=== PATIENT | male | born 1950 | race Caucasian/White ===

== ENCOUNTER → 2023-08-02 13:21 | Outpatient (BNVA) | payer MEDICARE, SELFPAY | PROVIDERS: PCP Physician Assistant; Referring Provider Physician Assistant; Visit Provider Physician Assistant Surgical | DX: R05.3 Chronic cough (principal); R09.82 Postnasal drip; Z87.891 Personal history of nicotine dependence | CPT/HCPCS: 99205 ==

== ENCOUNTER → 2023-09-18 14:20 | Outpatient (BNVA) | payer MEDICARE, SELFPAY | PROVIDERS: PCP Physician Assistant; Referring Provider Physician Assistant; Visit Provider Physician Assistant Surgical | DX: R05.3 Chronic cough (principal); R09.82 Postnasal drip; Z87.891 Personal history of nicotine dependence; I25.2 Old myocardial infarction | CPT/HCPCS: 99214 ==

== ENCOUNTER → 2023-12-06 13:45 | Outpatient (BNVA) | payer MEDICARE, SELFPAY | PROVIDERS: PCP Physician Assistant; Referring Provider Physician Assistant; Visit Provider Internal Medicine Critical Care Medicine | DX: R05.3 Chronic cough (principal); R05.9 Cough, unspecified | CPT/HCPCS: 36415; 99214 ==

== ENCOUNTER 2023-12-06 19:51 | Outpatient (REF) | payer MEDICARE, SELFPAY ==
[2023-12-06 17:42] LABS: Abs Immature Grans 0.01 10^3/uL (0.0-0.06); Absolute Basophil Count 0.08 10^3/uL (0.0-0.2); Absolute Eosinophil Count 0.19 10^3/uL (0.0-0.7); Absolute Lymphocyte Count 1.39 10^3/uL (1.2-3.4); Absolute Monocyte Count 0.65 10^3/uL (0.1-0.8); Absolute Neutrophil Count 2.51 10^3/uL (1.2-6.7); Basophils % 1.7 %; Eosinophils % 3.9 %; HCT 41.8 % (40.0-50.0); HGB 14.3 g/dL (13.5-17.5); Immature Grans % 0.2 %; Lymphocytes % 28.8 %; MCH 32.4 pg (27.0-33.0); MCHC 34.2 % (32.0-36.0); MCV 95 fL (80-95); MPV 9.5 fL (8.0-11.0); Monocytes % 13.5 %; Neutrophils % 51.9 %; Platelet Count 308 10^3/uL (130-400); RBC 4.42 10^6/uL (4.36-5.78); RDW 13.1 % (11.8-14.1); RDW-SD 45.3 fL; WBC 4.83 10^3/uL (4.4-10.8)
[2023-12-07 19:25] LABS: IgE 231 IU/mL (<158)
== END 2023-12-06 19:52 | disposition home or self-care (01) ==
LOC: LBN 19:51
PROVIDERS: PCP Physician Assistant; Visit Provider Internal Medicine Critical Care Medicine
DX: R05.3 Chronic cough (principal)
CPT/HCPCS: 82785; 85025

== ENCOUNTER 2023-12-13 03:50 | Outpatient (CLI) | payer MEDICARE, SELFPAY ==
[2023-12-13] MEDS: Methacholine 100 MG VIAL IH (16:44)
[2023-12-13] MEDS: Albuterol HFA 18 GM 200 PUFF INH IH (16:45)
[2023-12-13] MEDS: Inhaler, Assist Device 1 EACH MC (16:45)
--- NOTE | 2023-12-19 08:42 | W.PFT ---
Date of service: 12/13/23 Time of Service: 14:55 Pulmonary Function Test Result Requesting Provider Jina Wills MD Indications: Chronic cough, chest tightness, seasonal allergies. Former 30+ pack year smoker, quit 30 years ago. Medication: Albuterol not used before this test. Interpretation Spirometry: This is a methacholine challenge test, done according to [employer] standards. It includes prebronchodilator baseline, challenge with successively increasing doses of inhaled methacholine, and postbronchodilator reassessment. 1. Baseline spirometry is normal. 2. Methacholine challenge testing was negative, up to 16 mg/ml Methacholine. 3. Postbronchodilator assessment showed return of pulmonary function test to normal. Impression Negative methacholine challenge test. These results do not support a diagnosis of asthma. Clinical Correlation is recommended.
== END 2023-12-19 23:59 | disposition home or self-care (01) ==
LOC: RT 03:50
PROVIDERS: PCP Physician Assistant; Visit Provider Internal Medicine Critical Care Medicine
DX: R05.3 Chronic cough (principal); R07.89 Other chest pain; J30.2 Other seasonal allergic rhinitis; Z87.891 Personal history of nicotine dependence
CPT/HCPCS: 00123; 94060; 94070; J7674

== ENCOUNTER → 2024-02-14 13:57 | Outpatient (BNVA) | payer MEDICARE, SELFPAY | PROVIDERS: PCP Physician Assistant; Referring Provider Physician Assistant; Visit Provider Physician Assistant Surgical | DX: R05.3 Chronic cough (principal) | CPT/HCPCS: 99214 ==